=== PATIENT | female | born 1970 | race Two or more races ===

== ENCOUNTER 2019-12-18 08:13 | Inpatient (IN) | payer OTHER ==
[~2019-12-18] VITALS: Ht 161.3 cm; Wt 79.8 kg
[2019-12-18] VITALS (14 sets, daily range): BP systolic 86–121; BP diastolic 45–75
[~2019-12-18 08:13] MED LIST: Dexamethasone 20mg/5ml IVP ONE; ceFAZolin sod 1 GM in NS 55 ML IVPB ONE
[2019-12-18] MEDS ORDERED: Heparin 5000 units/ml inj ONE (09:23)
[2019-12-18] MEDS ORDERED: Lidocaine 1% 10mg/ml/Epi 0.005mg/ml 30ml vial INJ ONE (09:24)
[2019-12-18] MEDS ORDERED: Gelfoam Size TOPIC ONE (09:24)
[2019-12-18] MEDS ORDERED: Ropivacaine 5mg/ml Vial 20ml INJ ONE (09:24)
[2019-12-18] MEDS ORDERED: Thrombin 5000 units TOPIC ONE (09:24)
[2019-12-18] MEDS ORDERED: Lidocaine 1% Plain 30 ml INJ ONE ×2 (09:25→10:36)
[2019-12-18] MEDS ORDERED: Vancomycin 1gm vial IVPB ONE (09:25)
[2019-12-18] MEDS ORDERED: Bupivacaine w/Epi 0.5% 30ml Vial INJ ONE (09:25)
[2019-12-18] MEDS ORDERED: Bacitracin 50000 Units Vial ONE (09:25)
[2019-12-18] MEDS ORDERED: Dexamethasone 20mg/5ml ONE (10:03)
[2019-12-18] MEDS ORDERED: Rocuronium Bromide 50mg/5ml Inj IV ONE (10:27)
--- NOTE | 2019-12-18 10:28 | Pre-Procedure Note/Attestation ---
Pre-Procedure Note/Attestation Complete Prior to Procedure Planned Procedure: not applicable Procedure Narrative: ALIF L4-L5, possible L5-S1 Anterior internal fixation possible posteriuor pedicle screws L4, L5, S1 Indications for Procedure Pre-Operative Diagnosis: trauma instability lumbar pain Attestation I attest that I discussed the nature of the procedure; its benefits; risks and complications; and alternatives (and the risks and benefits of such alternatives ), prior to the procedure, with the patient (or the patient's legal phlebotomy services representative). I attest that, if there was a reasonable possibility of needing a blood transfusion, the patient (or the patient's legal phlebotomy services representative) was given the [place] Department [employer] Services standardized written summary, pursuant to the Jonatan Drew Blood Safety Act ([place] Health and Safety Code # 1645, as amended). I attest that I re-evaluated the patient just prior to the surgery and that there has been no change in the patient's H&P, except as documented below: Brandon Larose MD Dec 18, 2019 10:28
[2019-12-18] MEDS ORDERED: Sterile Water Irrig 1000ml IRRIG ONE (10:30)
[2019-12-18] MEDS ORDERED: LR 1000ml ONE (10:30)
[2019-12-18] MEDS ORDERED: Propofol 1,000mg/ 100ml btl IV ONE (10:30)
[2019-12-18] MEDS ORDERED: fentaNYL 100 mcg/2 mL IV ONE (10:32)
[2019-12-18] MEDS ORDERED: Sodium Chloride 10ml vial INJ ONE (10:34)
[2019-12-18] MEDS ORDERED: Dexamethasone 4mg/ml vial ONE (10:34)
[2019-12-18] MEDS ORDERED: Lidocaine 1% MPF 10mg/ml 5ml ONE ×2 (10:34→12:13)
--- NOTE | 2019-12-18 11:15 | Anethesia Preoperative Eval ---
Anesthesia Pre-op PMH/ROS General Date of Evaluation: Dec 18, 2019 Time of Evaluation: 10:21 Anesthesiologist: Joni ASA Score: ASA 2 Mallampati Score Class I : Soft palate, uvula, fauces, pillars visible Class II: Soft palate, uvula, fauces visible Class III: Soft palate, base of uvula visible Class IV: Only hard plate visible Mallampati Classification: Class II Surgeon: Thuan Diagnosis: Back Pain Surgical Procedure: ALIF L4-5 Anesthesia History: none Family History: no anesthesia problems Allergies: Coded Allergies: No Known Allergies (Unverified , 12/17/19) Medications: see eMAR Patient NPO?: Yes NPO Date: Dec 17, 2019 NPO Time: 2129 Past Medical History Cardiovascular: Reports: HTN Neurologic/Psychiatric: Reports: depression/anxiety Other: obesity - BMI 31 PSxH Narrative: Breast Aug, Uterine Ablation, C/S Anesthesia Pre-op Phys. Exam Physician Exam Last Vital Signs Date Time Temp Pulse Resp B/P (MAP) Pulse Ox O2 Delivery O2 Flow Rate FiO2 12/18/19 10:13 Room Air 12/18/19 09:50 97.9 70 20 121/75 (90) 100 Constitutional: NAD Neurologic: CN 2-12 intact Cardiovascular: RRR Respiratory: CTA Gastrointestinal: S/NT/ND Airway Exam Mallampati Score: Class II MO: full ROM: full Teeth: intact Anesthesia Pre-op A/P Labs Urine Test Test 12/18/19 09:25 Urine HCG, Qualitative Negative (NEGATIVE) Risk Assessment & Plan Assessment: ASA 2 Plan: GA, SED, GlideScope Go Status Change Before Surgery: No Pre-Antibiotics Dru grams Ancef IV Given Within 1 Hr of Incision: Yes Time Given: 10:46 Franky Quinones MD Dec 18, 2019 11:15
--- NOTE | 2019-12-18 11:16 | Immediate Post-Op Evaluation ---
Immediate Post-Op Evalulation Immediate Post-Op Evalulation Procedure: ALIF L4-5 Date of Evaluation: Dec 18, 2019 Time of Evaluation: 13:27 IV Fluids: 900 LR Blood Products: 0 Estimated Blood Loss: 50 Urinary Output: 450 Blood Pressure Systolic: 107 Blood Pressure Diastolic: 56 Pulse Rate: 74 Respiratory Rate: 16 O2 Sat by Pulse Oximetry: 100 Temperature (Fahrenheit): 97.6 Pain Score (1-10): 2 Nausea: No Vomiting: No Complications 0 Patient Status: awake, reacts, patent, extubated, none Hydration Status: adequate Dru grams Ancef IV Given Within 1 Hr of Incision: Yes Time Given: 10:46 Franky Quinones MD Dec 18, 2019 11:16
[2019-12-18] MEDS ORDERED: NS Irrig 1000ml IRRIG ONE (12:05)
[2019-12-18] MEDS ORDERED: Glycopyrrolate 0.2mg/ml 1ml Vial ONE (12:32)
[2019-12-18] MEDS ORDERED: Neostigmine 1mg/ml 10ml Inj ONE (12:32)
--- NOTE | 2019-12-18 12:47 | Brief Operative Note ---
Immediate Post Operative Note Operative Note Pre-op Diagnosis: trauma instability lumbar pain Procedure: L4-L5 ALIF, Anterior Plate, Titanium prosthesis, bioactive material graft Post-op Diagnosis: same as pre-op Surgeon: Thuan Ph.D., M.D. Additional Surgeons: Vadim FOSS Anesthesiologist: Joni FOSS Anesthesia: general Specimen: yes Complications: none Condition: stable Fluids: anesthesia Estimated Blood Loss: minimal Drains: none Implant(s) used?: Yes Brandon Larose MD Dec 18, 2019 12:47
[2019-12-18] MEDS ORDERED: Hydromorphone 0.5mg/0.5ml inj IVP PRN (13:00)
[2019-12-18] MEDS ORDERED: LORazepam Inj 2mg/ml 1ml IV PRN (13:00)
[2019-12-18] MEDS ORDERED: fentaNYL 100 mcg/2 mL IV PRN (13:00)
[2019-12-18] MEDS ORDERED: Naloxone 0.4mg/ml Inj IVP PRN (13:00)
[2019-12-18] MEDS ORDERED: DiphenhydrAMINE 50mg/ml Inj IVP PRN (13:00)
[2019-12-18] MEDS ORDERED: Atropine Sulfate 0.4mg/ml inj IVP PRN (13:00)
[2019-12-18] MEDS ORDERED: Midazolam 2mg/2ml Inj IVP PRN (13:00)
[2019-12-18] MEDS ORDERED: PCA HYDROmorphone 1mg/ml 30 ML IV PRN (13:00)
[2019-12-18] MEDS ORDERED: Rate Change PCA 1 Each MISC PRN (13:15)
[2019-12-18] MEDS ORDERED: Meperidine 25mg/0.5ml Inj (FOR RIGORS ONLY) IV PRN (13:15)
--- NOTE | 2019-12-18 14:50 | NUR ---
NURSE NOTES: Patient arrived on unit via hospital bed. Stable. Denies pain or SOB. Breathing is even and unlabored. Surgical dressing is stained. Patient oriented to room, call light, and unit. Patient instructed to use call light for assistance, verbalized understanding. Plan of care discussed with patient, verbalized understanding. Patient in bed in locked and lowest position with call light within reach. All needs met at this time. Will continue to monitor.
[2019-12-18] MEDS ORDERED: Morphine Sulfate 2mg/ml Inj(IV/IM USE ONLY) IM PRN (15:00)
[2019-12-18] MEDS ORDERED: HYDROcodone/Acetamin 10/325 tab ORAL PRN (15:00)
[2019-12-18] MEDS ORDERED: Chloraseptic Spray 20mL Bottle ORAL PRN (15:00)
[2019-12-18] MEDS ORDERED: DiphenhydrAMINE 25mg Tab ORAL PRN (15:00)
[2019-12-18] MEDS: D5 1/2NS 1,000 ML IV SCH ×2 (15:20→22:42)
[2019-12-18] MEDS: HYDROmorphone 1mg/ml Carpuject SUBQ PRN ×2 (15:20→22:28)
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
--- NOTE | 2019-12-18 16:39 | NUR ---
HAND-OFF: Report given to Rush PETER. Patient is stable.
--- NOTE | 2019-12-18 17:15 | Operative Note - Dictated ---
DATE OF OPERATION: 12/18/2019 SURGEON: Brandon Larose M.D. VASCULAR SURGEON: Dr. Fierro. ANESTHESIA: Franky Quinones M.D. ANESTHESIA: General with intubation. ADMITTING/PREOPERATIVE DIAGNOSIS: Posttraumatic lumbar spine instability/pain. POSTOPERATIVE DIAGNOSIS: Posttraumatic lumbar spine instability/pain. PROCEDURES: 1. Anterior L4-L5 interbody reconstruction/fusion. 2. Anterior internal fixation, L4-L5, with screw system not integral to the interbody device. 3. Interbody prosthesis titanium. 4. Placement of osteopromotive material at L4-L5 for fusion with additional autograft, local. 5. SSEP monitoring. 6. High-powered magnification dissection. COMPLICATIONS: None. POSTOP CONDITION: Good/stable. ESTIMATED BLOOD LOSS: 50 mL. PROCEDURE: Please see separate report of Dr. Fierro, for anterior exposure/closure with Dr. Larose. PROCEDURE IN DETAIL: The patient was brought to the operating room and in the supine position, general anesthesia intubation was induced. IV antibiotics and IV Decadron were administered prior to incision time. Anterior abdomen was sterilely prepped and draped free in usual sterile fashion. A portion of her prior transverse "tummy tuck" surgery scar utilized. Identification of midline and correct level bilateral radiographs with needle placed into the disk space obtained interpreted by surgeons. Position marked. Anterior annulotomy was performed followed with diskectomy to, but not through the posterior longitudinal ligament. Resection of endplate cartilaginous end caps with exposure of subchondral bleeding bone. Prosthetic trials utilized for determination of the correct graft for depth, height, width, and lordosis. Appropriate graft was selected opened to sterile. Local autograft combined with osteopromotive material packed into the interior window of the titanium graft. Graft inserted and tamped into position under direct observation with fluoroscopic confirmation for position/depth. Fit excellent. Anterior plate of the appropriate dimensions utilized with 30 mm, 7 mm diameter screws in a compressive fashion into the L4 and the L5 vertebral bodies. SSEP monitoring negative. Negative EMGs. The patient is stable. Excellent purchase. All screws were locked into position in the plate. AP/lateral fluoroscopic images obtained with recordings undertaken. Excellent alignment/position. Wound was irrigated with antibiotic-containing saline. Please see closure, Dr. Fierro. At the end of the procedure, the patient was awakened, extubated in the operating room, and transported to postop recovery in good and stable condition. Brandon Larose M.D. DR: CRYSTAL JOB#: [id number] CC:
[2019-12-18] MEDS: ceFAZolin sod 1 GM in D5W 55 ML IV SCH (18:02)
[2019-12-18] MEDS ORDERED: PCA shift volume MISC SCH (19:00)
--- NOTE | 2019-12-18 19:45 | NUR ---
NURSE NOTES: Received report from BRITTANI Beverly. Pt is sleeping, lying semi-goodwin's; comfortably resting. No signs of acute distress noted. Pt denies any pain at this time. Families at bedside. AOx4; able to make needs known. Checked IV site, line, and rate; patent and running. Dressing intact. No erythema, bleeding, or infiltration noted. Bed at lowest position. Brakes on. Siderails up x2. Call light within reach. Will continue to monitor.
--- NOTE | 2019-12-18 19:51 | NUR ---
HAND-OFF: Report given to Merritt TOBIAS RN.
[2019-12-18] MEDS ORDERED: PCA Education Pamphlet MISC ONE (21:00)
--- NOTE | 2019-12-18 22:15 | Operative Note - Dictated ---
DATE OF OPERATION: 12/18/2019 VASCULAR SURGEON: William Fierro M.D. SPINE SURGEON: Brandon Larose M.D. PREOPERATIVE DIAGNOSIS: Lumbar pain. POSTOPERATIVE DIAGNOSIS: Lumbar pain. PROCEDURE PERFORMED: Anterior retroperitoneal exposure of L4-5 vertebral interspace, left retroperitoneal approach. INDICATION: The patient is a very pleasant woman who has been seen prior to surgery. She has had a prior abdominoplasty via large transverse incision. She has no prior anterior spine surgery. No history of deep venous thrombosis or bleeding complications. We discussed the of her previous incision, possible vascular injury, possible need for blood transfusion, deep venous thrombosis were all discussed with her. DESCRIPTION OF FINDINGS: A low-transverse incision was used. A left retroperitoneal approach was used. There was no peritoneal or ureteral violation. There was no vascular injury. Exposure of L4-5 was obtained above the iliac bifurcation and confirmed via fluoroscopy. On completion, the peritoneum and ureter were intact. The iliac vessels were intact. The left iliac vein was displaced caudally by the plate placed in L4-5, however, did not appear to have any narrowing as a result of this. Blood loss was less than 50 mL. The patient has palpable femoral and pedal pulses on completion. He tolerated the procedure well. DESCRIPTION OF PROCEDURE: The patient was taken to the operating room. General anesthesia was used. IV antibiotics were given. The patient's abdomen was prepped and draped. Appropriate time-out for procedure was taken. A low prior transverse incision was opened. Flaps were raised superiorly. The anterior fascia was incised longitudinally in the midline. A plane was identified posterior to the left rectus abdominis developed posterolaterally to the patient's left. Retroperitoneal space was entered below the arcuate line. The peritoneum and ureter were mobilized towards the patient's right exposing the left common iliac artery and vein. Dissection was carried superiorly along the left iliac vein and the peritoneum and ureter were swept towards the patient's right. The iliolumbar vein was identified and ligated proximally and distally with vascular clips. The L4 segmental vessels were also identified and ligated with vascular clips. This allowed us to sweep the left iliac artery and vein toward the patient's right and expose the anterior surface of L4-5. The Omni retractor blade was set in place. Fluoroscopy was used to confirm the appropriate level. Instrumentation was performed at L4-5 dictated separately. On completion, retractor was gently removed. The peritoneum and ureter are intact. The iliac vessels are intact. The anterior fascia was then closed using #1 PDS in a running fashion and the skin and and subcutaneous tissue were closed with 3-0 Vicryl and 4-0 Monocryl in running subcuticular closure. William Fierro M.D. DR: SHREE JOB#: [id number] CC:
[2019-12-19] VITALS: BP 106/64
[2019-12-19] MEDS: ceFAZolin sod 1 GM in D5W 55 ML IV SCH ×2 (03:05→10:33)
[2019-12-19 04:00] VITALS: BP 105/58
[2019-12-19] MEDS: D5 1/2NS 1,000 ML IV SCH ×3 (05:54→21:12)
--- NOTE | 2019-12-19 07:25 | NUR ---
HAND-OFF: Report given to BRITTANI Hernandez. Pt is awake and in stable condition. Plan of care endorsed.
--- NOTE | 2019-12-19 07:30 | NUR ---
NURSE NOTES: Received report from BRITTANI Dacosta. The patient is resting on the bed without acute distress or shortness of breath. The patient's bed in the lowest position, call light in reach, and fall and aspiration precaution reinforced. IV site intact and patent and running IVF per order. Oxygen therapy per order. The patient had episode of vomiting last night. The patient had surgery on 12/18/2019 for ALIF and still has pain on surgical site. Will continue plan of care.
[2019-12-19 08:00] VITALS: BP 115/68
--- NOTE | 2019-12-19 08:30 | NUR ---
NURSE NOTES: Paged Dr. Larose regarding the patient's request of stool softner. Dr. Larose gave medication for bowel movement. Will carry out the order as soon as possible. The patient has bowel sound on four quadrants. Will continue plan of care.
[2019-12-19] MEDS: Magnesium Citrate Liq Btl ORAL PRN ×2 (10:34→18:37)
--- NOTE | 2019-12-19 11:00 | NUR ---
NURSE NOTES: The patient is stable without acute distress or shortness of breath. The patient tolerated clear liquid diet well during breakfast. The patient tolerated physical therapy well. Will continue plan of care.
[2019-12-19 12:00] VITALS: BP 114/56
--- NOTE | 2019-12-19 13:00 | NUR ---
NURSE NOTES: The patient is stable without acute distress or shortness of breath. Will continue plan of care.
[2019-12-19] MEDS ORDERED: Hydromorphone 0.5mg/0.5ml inj SUBQ SCH (13:30)
--- NOTE | 2019-12-19 14:44 | NUR ---
PT Note PT mylene completed, treatment initiated. Patient c/o pain on her abdominal surgical incisions during mobility tasks and coughing. Patient needs PT to increase her muscle strength to improve her functional mobility and gait with/without any AD to enable her to go home. Addendum: 12/19/19 at 1445 by NGOC ADEN PT Amended: Links added.
[2019-12-19 16:00] VITALS: BP 123/70
--- NOTE | 2019-12-19 16:00 | NUR ---
NURSE NOTES: The patient is stable without acute distress or shortness of breath. Will continue plan of care.
[2019-12-19] MEDS ORDERED: Hydromorphone 0.5mg/0.5ml inj SUBQ PRN (17:00)
--- NOTE | 2019-12-19 17:15 | NUR ---
NURSE NOTES: The patient is tolerating well for full liquid diet. The patient self voided without difficulty after removal of Hernandez. The patient is stable without acute distress or shortness of breath. Will continue plan of care.
--- NOTE | 2019-12-19 19:20 | NUR ---
HAND-OFF: Report given to BRITTANI Dacosta. The patient is resting on the bed without acute distress or shortness of breath. The patient's bed in the lowest position, call light in reach, and fall and aspiration precaution reinforced. IV site intact and patent. Endorsed plan of care.
--- NOTE | 2019-12-19 19:25 | NUR ---
NURSE NOTES: Received report from BRITTANI Hernandez. Pt is awake, lying semi-goodwin's; comfortably resting. No signs of acute distress noted. Pt denies any pain at this time. AOx4; able to make needs known. Checked IV site, line, and rate; patent and running. No bleeding, erythema, or infiltration noted. Abdomen dressing dry and intact. Bed at lowest position. Brakes on. Siderails up x2. Call light within reach. Will continue to monitor.
[2019-12-19 20:00] VITALS: BP 104/67
[2019-12-19] MEDS: HYDROmorphone 1mg/ml Carpuject SUBQ PRN (20:41)
--- NOTE | 2019-12-19 21:45 | Progress Note ---
DATE: 12/19/2019 ACUTE PAIN MANAGEMENT PHYSICIAN PROGRESS NOTE Medication administration record reviewed. Medications include Tylenol, Fioricet, Mylanta, Catapres, Benadryl, Pepcid, [place], Dilaudid, magnesium citrate, morphine, Narcan, Zofran, Chloraseptic spray, and Phenergan. LABORATORY STUDIES: No interval laboratory studies. OBJECTIVE: Vital signs - afebrile, pulse 60, respirations 20, blood pressure 114/56, and oxygen saturation 100% on supplemental oxygen. I spent over 60 minutes in consultation today. I saw the patient at bedside with her sister and mother. I discussed the case with the nurse RN, ____ who spoke with the surgeon, Dr. Larose. Physical therapy saw the patient this morning. The patient did fairly well. Physical therapy will evaluate the patient later again this afternoon, to decide if the patient can be cleared to ambulate with the assistance of her family and/or nursing team. The patient is anxious to discharge from the hospital and return to home. If the patient is cleared by physical therapy that she is able to ambulate without the assistance of the physical therapist, then we will discontinue the Hernandez catheter, so the patient can begin voiding urine on her own. After the patient's ALIF procedure, she still has not yet passed flatus. Therefore, she will continue on full liquid diet until she passes flatus. The surgeon, Dr. Larose ordered 300 mL bottle of magnesium citrate, which the patient just drink now after lunch time. This will be redosed in six hours if the patient has not had improvement in her gastrointestinal function. The patient already has good supply of [place] at home. The patient is breathing comfortably and we will wean off the nasal cannula oxygen. The patient's pain levels have been adequately controlled using current analgesic. PLAN: I spoke with the hospital recovery room nurse, BRITTANI Hampton last night. The patient was doing well with the breakthrough Dilaudid injections. I decided to hold off on the ACCOUNTING SYSTEMS MANAGER Dilaudid unit, an breakthrough Dilaudid subcutaneous doses have been effective here on the orthopedic floor. We will continue supportive care while we wait for lutheran of bowel function after her edema, we will see how the patient voids urine after the Hernandez catheter is removed and see how she continues to improve with physical therapy. Incentive spirometer has been placed at the bedside to encourage good pulmonary toilet. The patient has sequential compression pneumatic devices in place for DVT prophylaxis. Ryan Quiñones M.D. DR: SANTANA JOB#: [id number] CC:
[2019-12-20] VITALS: BP 92/54
[2019-12-20 04:00] VITALS: BP 117/73
--- NOTE | 2019-12-20 05:18 | NUR ---
NURSE NOTES: Received order from Dr. Quiñones regarding diet. Order noted, read back, and carried out. See orders for details.
[2019-12-20] MEDS: D5 1/2NS 1,000 ML IV SCH (05:28)
--- NOTE | 2019-12-20 07:54 | NUR ---
HAND-OFF: Report given to BRITTANI Valentino. Pt is awake and in stable condition. Plan of care endorsed.
[2019-12-20 08:00] VITALS: BP 102/72
--- NOTE | 2019-12-20 08:00 | NUR ---
NURSE NOTES: Received report from Olesya PETER, pt a/a/o x4 laying in bed with no signs of distress or other issues at this time. surgical dressing dry and intact with no signs of distress or other issues at this time.IV on the right hand gauge#18 heplock. pt is able to ambulate around the unit with steady gait. call light within reach, bed in lowest position. side rales up x2. I will f/u as needed. - plan to d/c home today.
--- NOTE | 2019-12-20 08:00 | Progress Note ---
DATE: 12/20/2019 ACUTE PAIN MANAGEMENT PHYSICIAN PROGRESS NOTE Medication administration record reviewed. Medications include Phenergan, Chloraseptic spray, Zofran, Narcan, magnesium citrate, Dilaudid, [place], Pepcid, Benadryl, Catapres, Mylanta, Fioricet, and Tylenol. LABORATORY STUDIES: No interval laboratory studies. OBJECTIVE: VITAL SIGNS: Within normal limits. Afebrile, pulse 76, respirations 20, blood pressure 117/73, and oxygen saturation 98% on room air. I spent over sixty minutes in consultation today. I saw the patient at the bedside. After discussion with the nurse RN, Olesya, and the charge nurse RN, Iris. Yesterday, the surgeon, Dr. Larose started the patient on magnesium citrate to help expedite a bowel movement after her ALIF surgery. She received one bottle of 300 mL at 12:30 p.m. in the afternoon after lunch yesterday, and a second bottle at 6:30 with her dinner. Resultantly, she has had 3 bouts of liquid stool this morning. I will discontinue further doses of magnesium citrate or any stool softeners or laxatives. Since she is passing flatus, I will now advance her diet to regular diet. She was tolerating full liquids without any difficulties during the daytime and a mechanical soft with her dinner yesterday. The patient has no nausea symptoms. The patient remains to be rather requesting pain medications. I did encourage her to take a few doses of subcutaneous Dilaudid, which has been working effectively without nausea or other adverse side effects. The patient has a good supply of [place] at home. The patient does still complain of intermittent headaches. This is a chronic issue with the patient, so the medical team is not concerned that such is related to the surgery. The patient continues to use Fioricet here in the hospital p.r.n., and she can use her [place] when she returns home. Dr. Larose will reassess the patient later today and likely discharge the patient to home to the care of her extended family or which can assist her with activities of daily living. The patient is afebrile and has normal vital signs. I will Hep-Lock her IV fluids to encourage movement in and out of bed. She was cleared by the physical therapist to ambulate ad-nila. She has been ambulating without the need of a front-wheeled walker and just with assistance from companions with the medical staff. She has been ambulating greater than 200 feet and should do well at home. If the patient's remains in the hospital in the ____ time for physical therapy to work with her again later this morning, we can work with stairs training. Ryan Quiñones M.D. DR: SANTANA JOB#: [id number] CC:
[2019-12-20 12:00] VITALS: BP 114/67
[2019-12-20] MEDS ORDERED: D5 1/2NS 1000ml IV ONE (13:29)
--- NOTE | 2019-12-20 13:36 | NUR ---
NURSE NOTES: Received order for discharge. discharge instructions and belongings list given to patient. IV removed prior to d/c. pt is aware that she will need to fallow up with . surgical dressing dry intact. pt left the floor with no signs of distress or other issues at this time. pt's family with provide transportation. I will f/u as needed.
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
== END 2019-12-20 13:36 | disposition home or self-care (01) | DRG 460 ==
LOC: SDSOVERFLO 09:03 → 3E 14:45 → UNDODISIN 12-20 13:30
PROC: 0SG00A0 Fusion of Lumbar Vertebral Joint with Interbody Fusion Device, Anterior Approach, Anterior Column, Open Approach (ICD-10-PCS; principal; 2019-12-18 10:30)
DX: M53.2X6 Spinal instabilities, lumbar region (principal); V89.2XXS Person injured in unspecified motor-vehicle accident, traffic, sequela; G89.18 Other acute postprocedural pain; E66.9 Obesity, unspecified; Z87.891 Personal history of nicotine dependence; G51.0 Bell's palsy; M19.90 Unspecified osteoarthritis, unspecified site
CPT/HCPCS: 36415; 72020; 76000; 81025; 86850; 86900; 86901; 87081; 94003; 94150; J2180; J2405; J2710; J2795

== ENCOUNTER 2020-02-12 05:21 | Observation (INO) | payer OTHER ==
--- NOTE | 2019-12-18 10:21 | Anethesia Preoperative Eval ---
Anesthesia Pre-op PMH/ROS General Date of Evaluation: Dec 18, 2019 Anesthesiologist: Joni Mallampati Score Class I : Soft palate, uvula, fauces, pillars visible Class II: Soft palate, uvula, fauces visible Class III: Soft palate, base of uvula visible Class IV: Only hard plate visible Surgeon: Thuan Diagnosis: Back Pain Surgical Procedure: ALIF L4-5 Anesthesia History: none Family History: no anesthesia problems Allergies: Coded Allergies: No Known Allergies (Unverified , 12/17/19) Medications: see eMAR Patient NPO?: Yes Franky Quinones MD Dec 18, 2019 10:21
--- NOTE | 2019-12-18 16:17 | Diagnostic Imaging Report ---
Indication: Intraoperative imaging COMPARISON: None FINDINGS: Multiple fluoroscopic images were obtained intraoperatively. Anterior discectomy and fusion demonstrated at L4-5. IMPRESSION: Intraoperative imaging as described above
[2020-02-12] VITALS (12 sets, daily range): BP systolic 101–142; BP diastolic 59–90
[~2020-02-12] VITALS: Ht 162.6 cm; Wt 86.2 kg
[~2020-02-12 05:21] MED LIST changes: +Acetaminophen (Non formulary) 100 ML IV ONE; +Atropine Sulfate 0.4mg/ml inj IVP PRN; +Chloraseptic Spray 20mL Bottle ORAL PRN; -Dexamethasone 20mg/5ml IVP ONE; +DiphenhydrAMINE 25mg Tab ORAL PRN; +DiphenhydrAMINE 50mg/ml Inj IVP PRN; +HYDROcodone/Acetamin 10/325 tab ORAL PRN; +HYDROcodone/Acetamin 5/325 tab ORAL PRN; +HYDROcodone/Acetamin 7.5/325 tab ORAL PRN; +HYDROmorphone 1mg/ml Carpuject SUBQ PRN; +Hydromorphone 0.5mg/0.5ml inj IVP PRN; +Ketorolac 30mg Inj IV PRN; +LORazepam Inj 2mg/ml 1ml IV PRN; +LR 1000ml 1,000 ML IVLG SCH; +Meperidine 25mg/0.5ml Inj (FOR RIGORS ONLY) IV PRN; +Midazolam 2mg/2ml Inj IVP PRN; +Morphine Sulfate 4mg/ml Inj (IV USE ONLY) IM PRN; +PCA Education Pamphlet MISC ONE; +PCA HYDROmorphone 1mg/ml 30 ML IV PRN; +PCA shift volume MISC SCH; +Rate Change PCA 1 Each MISC PRN; -ceFAZolin sod 1 GM in NS 55 ML IVPB ONE; +fentaNYL 100 mcg/2 mL IV PRN; +oxyCODONE HCL/Acetaminophen 5/325mg ORAL PRN
[2020-02-12] MEDS ORDERED: HYDROmorphone 1mg/ml Carpuject IVP PRN (06:15)
[2020-02-12] MEDS ORDERED: Chloraseptic Spray 20mL Bottle ORAL PRN (06:15)
[2020-02-12] MEDS ORDERED: HYDROcodone/Acetamin 10/325 tab ORAL PRN (06:15)
[2020-02-12] MEDS ORDERED: DiphenhydrAMINE 25mg Tab ORAL PRN (06:15)
[2020-02-12] MEDS ORDERED: HYDROmorphone 1mg/ml Carpuject SUBQ PRN (06:15)
[2020-02-12] MEDS ORDERED: LR 1000ml 1,000 ML IVLG SCH (06:31)
--- NOTE | 2020-02-12 06:35 | Anethesia Preoperative Eval ---
Anesthesia Pre-op PMH/ROS General Date of Evaluation: Feb 12, 2020 Time of Evaluation: 06:49 Anesthesiologist: Joni ASA Score: ASA 2 Mallampati Score Class I : Soft palate, uvula, fauces, pillars visible Class II: Soft palate, uvula, fauces visible Class III: Soft palate, base of uvula visible Class IV: Only hard plate visible Mallampati Classification: Class II Surgeon: Thuan Diagnosis: Neck Pain Surgical Procedure: ACDF C6-7 Anesthesia History: none Family History: no anesthesia problems Allergies: Coded Allergies: No Known Allergies (Unverified , 12/17/19) Medications: see eMAR Patient NPO?: Yes NPO Date: Feb 11, 2020 NPO Time: 1999 Past Medical History Cardiovascular: Reports: HTN Neurologic/Psychiatric: Reports: depression/anxiety Other: obesity - BMI 34 PSxH Narrative: Breast Aug, Uterine Ablation, C/S, Lumbar SX Anesthesia Pre-op Phys. Exam Physician Exam Last Vital Signs Date Time Temp Pulse Resp B/P (MAP) Pulse Ox O2 Delivery O2 Flow Rate FiO2 02/12/20 05:56 Room Air 02/12/20 05:53 97.7 88 18 142/90 (107) 99 Constitutional: NAD Neurologic: CN 2-12 intact Cardiovascular: RRR Respiratory: CTA Gastrointestinal: S/NT/ND Airway Exam Mallampati Score: Class II MO: full ROM: limited Teeth: intact Anesthesia Pre-op A/P Risk Assessment & Plan Assessment: ASA 2 Plan: GA, SED, GlideScope Status Change Before Surgery: No Pre-Antibiotics Dru Grams Ancef IV Given Within 1 Hr of Incision: Yes Time Given: 07:21 Franky Quinones MD Feb 12, 2020 06:35
[2020-02-12] MEDS ORDERED: Thrombin 5000 units TOPIC ONE (06:39)
[2020-02-12] MEDS ORDERED: Gelfoam Size TOPIC ONE (06:39)
[2020-02-12] MEDS ORDERED: Bacitracin 50000 Units Vial ONE (06:39)
[2020-02-12] MEDS ORDERED: HYDROcodone/Acetamin 7.5/325 tab ORAL PRN (06:45)
[2020-02-12] MEDS ORDERED: oxyCODONE HCL/Acetaminophen 5/325mg ORAL PRN (06:45)
[2020-02-12] MEDS ORDERED: DiphenhydrAMINE 50mg/ml Inj IVP PRN (06:45)
[2020-02-12] MEDS ORDERED: HYDROcodone/Acetamin 5/325 tab ORAL PRN (06:45)
[2020-02-12] MEDS ORDERED: Atropine Sulfate 0.4mg/ml inj IVP PRN (06:45)
[2020-02-12] MEDS ORDERED: fentaNYL 100 mcg/2 mL IV PRN (06:45)
[2020-02-12] MEDS ORDERED: Ketorolac 30mg Inj IV PRN ×2 (06:45)
[2020-02-12] MEDS ORDERED: Midazolam 2mg/2ml Inj IVP PRN (06:45)
[2020-02-12] MEDS ORDERED: LORazepam Inj 2mg/ml 1ml IV PRN (06:45)
[2020-02-12] MEDS ORDERED: Hydromorphone 0.5mg/0.5ml inj IVP PRN (06:45)
[2020-02-12] MEDS ORDERED: Meperidine 25mg/0.5ml Inj (FOR RIGORS ONLY) IV PRN (06:45)
[2020-02-12] MEDS ORDERED: Acetaminophen (Non formulary) 100 ML IV ONE (06:45)
[2020-02-12] MEDS ORDERED: Rocuronium Bromide 50mg/5ml Inj IV ONE (06:49)
[2020-02-12] MEDS ORDERED: Sterile Water Irrig 1000ml IRRIG ONE (07:00)
[2020-02-12] MEDS ORDERED: NS Irrig 1000ml ONE (07:00)
[2020-02-12] MEDS ORDERED: Dexamethasone 20mg/5ml IVP ONE (07:00)
[2020-02-12] MEDS ORDERED: Propofol 1,000mg/ 100ml btl IV ONE (07:00)
[2020-02-12] MEDS ORDERED: Labetalol 5mg/ml 20ml vial IV ONE (07:00)
[2020-02-12] MEDS ORDERED: ceFAZolin sod 1 GM in NS 55 ML IVPB ONE (07:00)
[2020-02-12] MEDS ORDERED: Sodium Chloride 10ml vial INJ ONE (07:00)
[2020-02-12] MEDS ORDERED: LR 1000ml ONE (07:00)
[2020-02-12] MEDS ORDERED: Lidocaine 1% MPF 10mg/ml 5ml ONE (07:00)
[2020-02-12] MEDS ORDERED: Dexamethasone 4mg/ml vial ONE (07:00)
[2020-02-12] MEDS ORDERED: Lidocaine 1% Plain 30 ml INJ ONE (07:04)
--- NOTE | 2020-02-12 07:09 | Pre-Procedure Note/Attestation ---
Pre-Procedure Note/Attestation Complete Prior to Procedure Planned Procedure: not applicable Procedure Narrative: ACDF with plate C6-C7 Indications for Procedure Pre-Operative Diagnosis: Cervical HNP radiculopathy, neurological deficit, pain. Attestation I attest that I discussed the nature of the procedure; its benefits; risks and complications; and alternatives (and the risks and benefits of such alternatives ), prior to the procedure, with the patient (or the patient's legal field representative/health education). I attest that, if there was a reasonable possibility of needing a blood transfusion, the patient (or the patient's legal field representative/health education) was given the [facility] standardized written summary, pursuant to the [place] Blood Safety Act ([place] Health and Safety Code # 1645, as amended). I attest that I re-evaluated the patient just prior to the surgery and that there has been no change in the patient's H&P, except as documented below: Brandon Larose MD Feb 12, 2020 07:08
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
--- NOTE | 2020-02-12 07:37 | Immediate Post-Op Evaluation ---
Immediate Post-Op Evalulation Immediate Post-Op Evalulation Procedure: ACDF C6-7 Date of Evaluation: Feb 12, 2020 Time of Evaluation: 09:32 IV Fluids: 1000 LR Blood Products: 0 Estimated Blood Loss: 40 Urinary Output: 0 Blood Pressure Systolic: 105 Blood Pressure Diastolic: 58 Pulse Rate: 59 Respiratory Rate: 16 O2 Sat by Pulse Oximetry: 98 Temperature (Fahrenheit): 97.1 Pain Score (1-10): 2 Nausea: No Vomiting: No Complications 0 Patient Status: awake, reacts, patent, extubated, none Hydration Status: adequate Dru Grams Ancef IV Given Within 1 Hr of Incision: Yes Time Given: 07:21 Franky Quinones MD Feb 12, 2020 07:37
--- NOTE | 2020-02-12 07:38 | 48 Hour Post Anesthesia Eval ---
Post Anesthesia Evaluation Procedure: ACDF C6-7 Date of Evaluation: Feb 12, 2020 Time of Evaluation: 11:46 Blood Pressure Systolic: 123 0: 78 Pulse Rate: 67 Respiratory Rate: 18 Temperature (Fahrenheit): 98 O2 Sat by Pulse Oximetry: 99 Airway: patent Nausea: No Vomiting: No Pain Intensity: 2 Hydration Status: adequate Cardiopulmonary Status: Stable Mental Status/LOC: patient returned to baseline Follow-up Care/Observations: 0 Post-Anesthesia Complications: 0 Follow-up care needed: ready to discharge Franky Quinones MD Feb 12, 2020 07:38
[2020-02-12] MEDS ORDERED: Neostigmine 1mg/ml 10ml Inj ONE (08:32)
[2020-02-12] MEDS ORDERED: Glycopyrrolate 0.2mg/ml 1ml Vial ONE (08:32)
[2020-02-12] MEDS ORDERED: Sugammadex Sodium 200mg/2ml vial IV ONE (08:37)
--- NOTE | 2020-02-12 08:51 | Brief Operative Note ---
Immediate Post Operative Note Operative Note Pre-op Diagnosis: Cervical HNP radiculopathy, neurological deficit, pain. Procedure: ACDF C6-C7 Plate osteopromotove material ssep xray magnification Post-op Diagnosis: same as pre-op Findings: consistent w/pre-op dx studies Surgeon: Thuan FOSS Butane Compressor Operator: Danii RODARTE Anesthesiologist: Joni FOSS Anesthesia: general Specimen: yes Complications: none Condition: stable Fluids: anesthesia Estimated Blood Loss: minimal Drains: none Implant(s) used?: Yes Brandon Larose MD Feb 12, 2020 08:51
[2020-02-12] MEDS ORDERED: Naloxone 0.4mg/ml Inj IVP PRN (09:00)
[2020-02-12] MEDS ORDERED: D5 1/2NS 1,000 ML IV SCH (10:00)
--- NOTE | 2020-02-12 10:15 | NUR ---
NURSE NOTES: Pt came down to unit from surgery via bed. Received report from BRITTANI Brandon. All belongings are accounted for. Pt awake, able to respond. A&Ox4, Checked Vital signs. VSS. Wound dressing Clean, dry, intact. IV on right hand intact and patent. Bed is locked and in lowest position. Pt c/o pain on surgical site 02/18. but tolerated. Breathing even and unlabored. Call light within reach. Will continue to monitor.
--- NOTE | 2020-02-12 12:00 | NUR ---
NURSE NOTES: Pt ambulates with PT w/o drowsiness. No c/o nausea and vomiting.
--- NOTE | 2020-02-12 12:31 | NUR ---
NURSE NOTES: Pt voided. Urine clear yellow.
--- NOTE | 2020-02-12 13:20 | NUR ---
NURSE NOTES: pt in stable condition. Discharge instruction provided. IV and ID wristband removed. all belongings are checked with pt. pt picked up by pt's parents.
--- NOTE | 2020-02-12 13:34 | NUR ---
CASE MANAGEMENT:REVIEW 50 YR OLD MALE HERE FOR ELECTIVE SURGERY SI: CERVICAL RADICULOPATHY,NEURO DEFICIT AND PAIN 97.7 88 18 142/90 99% ON RA IS: TO SURGERY FOR: ACDF C6-C7 IV ANCEF Q8HRS IVF@125/HR PEPCID PO BID IV DILAUDID Q3HRS PRN PAIN : MED/SURG STATUS 3 EAST DCP: FROM HOME INTERQUAL CRITERIA MET
[2020-02-12] MEDS ORDERED: ceFAZolin sod 1 GM in D5W 55 ML IV SCH (14:00)
--- NOTE | 2020-02-12 15:09 | Diagnostic Imaging Report ---
Indication: Intraoperative imaging COMPARISON: None FINDINGS: Multiple fluoroscopic images were obtained intraoperatively. Two-level anterior cervical fusion discectomy demonstrated at 6 C6-7 on several images. IMPRESSION: Intraoperative imaging as described above
--- NOTE | 2020-02-14 00:45 | Operative Note - Dictated ---
DATE OF OPERATION: 02/12/2020 PROCEDURE: 1. ACDF C6-C7. 2. Titanium interbody graft C6-C7. 3. Osteopromotive material C6-C7. 4. Anterior internal plate fixation C6, C7. (internal fixation not integral to the interbody graft). 5. High-powered microscopic dissection. 6. Intraoperative x-rays interpreted by surgeon. 7. SSEP monitoring. SURGEON: Brandon Larose PhD CERTIFIED COATINGS INSPECTOR: CAYDEN Yoo ANESTHESIOLOGIST: Franky Quinones MD ANESTHESIA: General with intubation. ESTIMATED BLOOD LOSS: Minimal. COMPLICATIONS: None. POSTOP CONDITION: Good/stable. SPECIMENS: Disk fragments C6-C7 to Pathology. DESCRIPTION OF PROCEDURE: The patient was brought to the operating room and in the supine position, general anesthesia intubation was induced. IV antibiotics and IV Decadron were administered 30 minutes prior to incision time. Incision placement was determined with markers on the right side of the neck with cross-table imaging interpreted by surgeon. The left lateral aspect of the neck was appropriately marked with a sterile marking pen for incision. Markers on the right side of the neck were removed. Anterior cervical spine was sterilely prepped and draped free in usual sterile fashion. Utilizing the prior mercy, transverse incision left. Sharp dissection was carried through the dermis and epidermis to the subcutaneous tissue. Subcutaneous tissue was incised with electrocautery dissection to the level of the platysmas muscle, was identified, isolated, and transected in line with the incision. Blunt dissection was carried medial to the left sternocleidomastoid muscle and left carotid sheath through the deep cervical and pretracheal fascia to midline between the right and left longus colli muscles. Spinal needle was bent at 90 degree angles to avoid penetration greater than 3 mm into the disc space, was placed under high-power magnification at the disc space midline. Cross-table imaging was obtained interpreted by surgeon demonstrating the correct level. Level was marked. Needle removed. Subperiosteal dissection of the longus colli muscles not exceeding 3 millimeters from the medial lateral extents bilaterally. Retractors placed deep to the longus colli muscles. Under high-power magnification, anterior annulotomy performed followed with diskectomy to the posterior longitudinal ligament with removal with Midas Vitor bur dissection of the cartilaginous end caps. Posterior longitudinal ligament was incised with decompression bilateral foramina and cord. No dural tears or leaks occurred anytime during the procedure. SSEP monitoring was stable at all times. After determining the appropriate graft size, titanium lordotic cage packed with osteopromotive material containing local autograft was tamped into position. Fluoroscopic guidance demonstrated excellent alignment and positioning. All traction on the neck was removed (10 pounds). Anterior internal plate fixation compressive fashion was placed with bilateral C6, bilateral C7 screws. Fit excellent. Purchase excellent. Fluoroscopic imaging in AP, lateral planes record demonstrating excellent positioning. Wound was irrigated with antibiotic-containing saline. Exploration did not reveal any obvious excoriation or laceration of vital structures. FloSeal was applied. Sequential reapproximation of the platysmas muscle, subcutaneous tissue followed surgical strips, sterile bandage maintained in place with tape. The patient was awakened in the operating room, transported to postop recovery in good stable condition. Brandon Larose M.D. DR: DEMI JOB#: [id number] CC:
--- NOTE | 2020-02-15 15:45 | Operative Note - Dictated ---
DATE OF OPERATION: 02/12/2020 ADMITTING/PREOPERATIVE DIAGNOSIS: C6-C7 HNP with radiculopathy/pain. POSTOPERATIVE DIAGNOSIS: C6-C7 HNP with radiculopathy/pain. OPERATIVE PROCEDURE: ACDF, C6-C7; anterior internal plate fixation, C6-C7; osteopromotive material, C6-C7; interbody graft titanium, C6-C7. Of note, the titanium interbody device not integral to the anterior plate fixation was replaced in a compressive fashion. SSEP monitoring. High-power microscopic dissection. Intraoperative x-rays interpreted by surgeon. PRIMARY SURGEON: Brandon Larose, PhD, MD. NURSE SPECIAL: CAYDEN Franco. ANESTHESIA: Franky Quinones MD. ANESTHESIA: General with intubation. ESTIMATED BLOOD LOSS: Minimal. SPECIMENS: Disk fragments of C5-C6 to Pathology. COMPLICATIONS: None. POSTOP CONDITION: Good/stable. DESCRIPTION OF PROCEDURE: The patient was brought to the operating room and in the supine position, general anesthesia with intubation was induced. IV antibiotics and IV Decadron were administered 30 minutes prior to incision time. Determination of incision placement was undertaken with a sterile spinal needle within the sheath - without skin penetration - taped to the right side of the neck with a cross-table image obtained demonstrating the correct alignment for the C6-C7 disk space. The left lateral aspect of the neck was marked with a sterile marking pen for incision placement. Marker on the right side of the neck was removed. Anterior cervical spine was sterilely prepped and draped free in usual sterile fashion. A transverse incision on left was sharply placed through dermis and epidermis. Electrocautery dissection through the subcutaneous tissue to the level of the platysmas muscle, which was identified, isolated, and transected in line with the incision. Blunt dissection was carried medial to the left sternocleidomastoid muscle and carotid sheath to deep cervical and pretracheal fascia to midline between the right and left longus colli muscles. A spinal needle bent at 90-degree angle - avoiding penetration of the needle greater than 3 mm into the disk space - was placed under high-power magnification. Cross-table x-rays were obtained demonstrating the correct level and alignment/position for further surgery. Interval was marked. Needle removed. Longus colli muscles were subperiosteally elevated not exceeding 3 mm in the mediolateral extent of the appropriate interval. Retractors were placed. Annulotomy followed diskectomy to the posterior longitudinal ligament. Foraminotomies. Endplates were denuded of cartilaginous covering. After appropriate trial utilization, the correct-sized titanium through the printed graft was packed with osteopromotive material and local autograft and tamped into position. It fit excellent. Position confirmed with intraoperative fluoroscopy. SSEP monitoring was stable at all times. Anterior internal plate fixation was undertaken in compressive fashion. The screw was locked into position. Bilateral screws at C6 and bilateral screws at C7. Fluoroscopic guidance with x-rays obtained demonstrating alignment and position as excellent. Wound was irrigated with antibiotic-containing saline. Exploration did not reveal obvious excoriation or laceration of vital structures. FloSeal applied. Reapproximation was undertaken of the platysmas muscle and subcutaneous tissue/dermis/epidermis. Surgical strips applied. Sterile bandage applied. The patient was awakened, extubated in the operating room, and transported to postop recovery room in good stable condition. Brandon Larose M.D. DR: Ailin JOB#: [id number] CC:
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
== END 2020-02-12 13:20 | disposition home or self-care (01) ==
LOC: SUR 05:21 → 3E 09:34
DX: M50.123 Cervical disc disorder at C6-C7 level with radiculopathy (principal); M48.02 Spinal stenosis, cervical region; G89.18 Other acute postprocedural pain; E66.9 Obesity, unspecified; I10 Essential (primary) hypertension; M19.90 Unspecified osteoarthritis, unspecified site; F32.9 Major depressive disorder, single episode, unspecified; F41.9 Anxiety disorder, unspecified; Z68.32 Body mass index [BMI] 32.0-32.9, adult; Z87.891 Personal history of nicotine dependence; Z98.1 Arthrodesis status; Z98.890 Other specified postprocedural states; Z82.49 Family history of ischemic heart disease and other diseases of the circulatory system
CPT/HCPCS: 20931; 20936; 22551; 22845; 22853; 36415; 72040; 76000; 86850; 86900; 86901; 97116; 97161; 97530; C1713; J0131; J0690; J1100; J2001; J2250; J2405; J2704; J2710; J3010; J7120; 72020; 94003; 94150; G0378